=== PATIENT | female | born 1955 | race Caucasian/White ===

== ENCOUNTER → 2018-08-04 | Outpatient (CLI) | payer MEDICARE, BC ==
[~2018-08-04] MED LIST: ASMA110A IN; AZOR5TAB4 PO; CART120C PO; CENT1TAB9 PO; E-Z-GAS II EFFERVESCENT PACKET (SODIUM BICARB./CITRIC ACID/SIMETHICONE) As Ordered ONE; E-Z-HD 98% w/w 340GM SUSP BTL As Ordered ONE; E-Z-PAQUE 96% w/w SUSP 176GM BTL As Ordered ONE; FERR325T81 PO; MAGN64TASA PO
--- NOTE | 2018-08-06 09:26 | REP ---
Examination Requested: Upper G.I. Series With KUB Reason For Exam: Cough, gastroesophageal reflux disease with esophagitis Upper GI Air Contrast The procedure was performed by IGOR Rea, under the direct supervision of Dr. Bauer. The images were reviewed with Dr. Bauer. The geological scout film shows no organomegaly or pathological masses. The intestinal gas pattern appears normal. The lap band is at the GE junction and is in the correct position. Liquid barium and gas producing crystals were given in the erect position as well as liquid barium in the prone position in order to perform a double contrast upper GI examination. The oral and pharyngeal stages of deglutition were unremarkable. Esophageal transport is efficient and there is no esophagitis, stricture, or mucosal ring noted. Tertiary contractions were observed. There there is a small hiatal hernia. No gastroesophageal reflux was visualized throughout the course of the exam. The stomach weiss are normally outlined. The rugal folds are smooth and regular. There is no gastritis, neoplasm, ulcer disease noted. The duodenal weiss are normally outlined. The mucosal folds are smooth and regular. There is no duodenitis, peptic ulcer disease, or neoplasm noted. The visualized portion of the proximal small bowel appears normal in course and caliber. Impression; 1. Small hiatal hernia. 2. Tertiary contractions 1.5 minutes of fluoroscopy time was utilized for this procedure. Reviewed by IGOR Aguero 08/05/2018 09:19 A Electronically Signed by Raymundo Bauer MD 08/06/2018 09:18 A
== END ==
LOC: M RAD 07:55
PROVIDERS: ATTEND Internal Medicine Gastroenterology
DX: R05 Cough (principal); K21.0 Gastro-esophageal reflux disease with esophagitis; Z98.84 Bariatric surgery status; K44.9 Diaphragmatic hernia without obstruction or gangrene

== ENCOUNTER 2018-08-12 12:37 | Day surgery (SDC) | payer MEDICARE, BC ==
[~2018-08-12] VITALS: Ht 172.7 cm; Wt 121.6 kg
[2018-08-12] MEDS: NS 1,000 ML IV ONE (06:15)
[~2018-08-12 12:37] MED LIST changes: -E-Z-GAS II EFFERVESCENT PACKET (SODIUM BICARB./CITRIC ACID/SIMETHICONE) As Ordered ONE; -E-Z-HD 98% w/w 340GM SUSP BTL As Ordered ONE; -E-Z-PAQUE 96% w/w SUSP 176GM BTL As Ordered ONE
[2018-08-12] MEDS ORDERED: FOLI400T PO (14:09)
[2018-08-12] MEDS ORDERED: OREN1INJ SC (14:09)
[2018-08-12] MEDS ORDERED: OMEP40CA2 PO (14:09)
[2018-08-12] MEDS ORDERED: FURO20TA2 PO (14:09)
[2018-08-12] MEDS ORDERED: FOLI800C PO (14:09)
[2018-08-12] MEDS ORDERED: PROP60TA14 PO (14:09)
[2018-08-12] MEDS ORDERED: XARE20TA PO (14:09)
[2018-08-12] MEDS ORDERED: PRED5TA PO (14:09)
[2018-08-12] MEDS ORDERED: NAPR-885 PO (14:09)
[2018-08-12] MEDS ORDERED: ARAV20TA PO (14:09)
[2018-08-12] MEDS ORDERED: LIDOCAINE 2% INJ 100 MG/5 ML SDV (FOR ANES.) As Ordered ONE (14:32)
[2018-08-12] MEDS ORDERED: PROPOFOL 200 MG/20 ML VIAL As Ordered ONE (14:32)
--- NOTE | 2018-08-12 15:58 | ROOR ---
Patient Name: Jessica Goins Procedure Date: 08/12/2018 3:39 PM Date of : 1955 Age: 62 Room: [facility] Gender: Female Note Status: Finalized Procedure: Upper GI endoscopy Indications: Esophageal reflux, Recurrent aspiration pneumonitis. Providers: Oswald CASTRO MD Referring MD: ELEANOR GABRIEL MD Requesting Provider: Medicines: Monitored Anesthesia Care Complications: No immediate complications. Procedure: Pre-Anesthesia Assessment: - The heart rate, respiratory rate, oxygen saturations, blood pressure, adequacy of pulmonary ventilation, and response to care were monitored throughout the procedure. The Endoscope was introduced through the mouth, and advanced to the second part of duodenum. The upper GI endoscopy was accomplished without difficulty. The patient tolerated the procedure well. Findings: Non-severe esophagitis was found at the gastroesophageal junction. Biopsy is contraindicated because the patient is taking anticoagulation medication. The entire examined stomach was normal. The examined duodenum was normal. Impression: - Non-severe esophagitis. Biopsy is contraindicated. - Normal stomach. - Normal examined duodenum. - No specimens collected. - (I understand there is a LapBand in place. I do not appreciate this on todays examination) Recommendation: - Return to referring physician as previously scheduled. - Consideration may be given to a referral to surgery. Re: antireflux surgery with/without sleeve gastrectomy. - Use Prilosec (omeprazole) 40 mg PO BID. - (the script was sent to your pharmacy on file) Oswald Castro MD Oswald CASTRO MD 08/12/2018 3:58:37 PM Electronically signed by Oswald CASTRO MD Number of Addenda: 0 Note Initiated On: 08/12/2018 3:39 PM Estimated Blood Loss: Estimated blood loss: none.
[2018-08-12 16:20] VITALS: BP 147/76
== END 2018-08-12 16:25 | disposition home or self-care (01) ==
LOC: M OPP 12:37
PROVIDERS: ATTEND Internal Medicine Gastroenterology
DX: K21.9 Gastro-esophageal reflux disease without esophagitis (principal); K20.9 Esophagitis, unspecified

== ENCOUNTER → 2020-10-14 | Outpatient (CLI) | payer MEDICARE, BC ==
[~2020-10-14] MED LIST changes: +ARAV20TA PO; +FOLI400T13 PO; +FOLI800C PO; +FURO20TA2 PO; +NAPR-885 PO; +OMEP40CA4 PO; +OREN1INJ SC; +PRED5TA PO; +PROP60TA14 PO; +XARE20TA PO
== END ==
LOC: M RAD 13:59
PROVIDERS: ATTEND Internal Medicine Pulmonary Disease
DX: Z86.711 Personal history of pulmonary embolism (principal)
CPT/HCPCS: 71046; 78582; A9540; A9567

== ENCOUNTER → 2020-12-23 | Outpatient (CLI) | payer MEDICARE, BC | LOC: M SLEEP 20:00 | PROVIDERS: ATTEND Internal Medicine Pulmonary Disease | DX: G47.33 Obstructive sleep apnea (adult) (pediatric) (principal) ==

== ENCOUNTER → 2021-01-18 | Outpatient (CLI) | payer MEDICARE, BC ==
--- NOTE | 2021-01-23 14:34 | SLEEPCENT ---
DATE: 01/18/2021 ORDERED BY: ALCIDES HOLLY MD Nocturnal polysomnography was performed for the titration of pressure therapy in this patient with obstructive sleep apnea syndrome, apnea hypopnea index 60.6. For testing a ResMed and Quatrefoil face mask of small size was used, 4 cm of water pressure were applied to the circuit, and the lights were extinguished. Seven hours and 49 minutes of data were reviewed. There were 212.5 minutes of sleep identified. Sleep latency was prolonged at 78.5 minutes. REM sleep latency was short at 52.5 minutes. Sleep architecture improved with optimal pressure therapy. Overall sleep efficiency was 45.7% due to wake after sleep onset. The electrocardiogram showed a sinus rhythm with an average heart rate of 68 beats per minute. EEG showed normal waveforms for wake and sleep. Respiratory events were fully palliated with CPAP at a pressure of 10 and remaining measures of sleep physiology were normal. IMPRESSIONS: Obstructive sleep apnea syndrome (G47.33). RECOMMENDATION: Nightly use of pressure therapy 10 cm of water. cc: ELEANOR GABRIEL MD
== END ==
LOC: M SLEEP 20:00
PROVIDERS: ATTEND Internal Medicine Pulmonary Disease
DX: G47.33 Obstructive sleep apnea (adult) (pediatric) (principal)